=== PATIENT | male | born 1975 | race Caucasian/White ===

== ENCOUNTER 2020-06-15 13:04 | Emergency (ER) | payer OTHER, SELFPAY ==
--- NOTE | ~2020-06-15 | CT_ITS ---
EXAMINATION: CT ABDOMEN AND PELVIS WITH CONTRAST CLINICAL INFORMATION: 45-year-old male with right-sided abdominal pain. COMPARISON: Abdominal ultrasound 07/16/[address] abdomen pelvis 10/09/2016 TECHNIQUE: Multidetector volumetric images were obtained from the superior aspect of the liver through the pubic symphysis following administration 85 mL of Omnipaque 350 intravenous contrast. Sagittal and coronal reformatted images were obtained on the technologist's workstation. This CT examination was performed using dose optimization techniques as appropriate, variously including the following: *Automated exposure control *Adjustment of mA and/or kV according to patient size (this includes techniques or standardized protocols for targeted exams where dose is matched to indication/reason for exam; i.e. extremities or head) *Use of iterative reconstruction technique DLP: 692 mGy-cm FINDINGS: Visualized lung bases are well aerated. The liver demonstrates normal size, contour and attenuation. The gallbladder is normal in appearance. The pancreas, spleen and adrenal glands are unremarkable. Symmetrically enhancing kidneys. There is no hydronephrosis. There is a 6 mm nonobstructing calculus within the midpole the left kidney. This stone demonstrates attenuation values of approximately 850 and is located approximately 6.5 cm from the posterior skin surface. 4 mm hypodensity within the midpole the right kidney is too small to accurately characterize. Normal caliber loops of small and large bowel. Normal appendix. Nonaneurysmal abdominal aorta. The bladder is relatively decompressed but unremarkable. The prostate gland is prominent in size. No gross free pelvic fluid. No inguinal lymphadenopathy. Mild degenerative changes of the spine. CT/CT abdomen pelvis w con IMPRESSION: 6 mm nonobstructing left renal calculus. No right-sided renal calculi. No hydronephrosis of either kidney.
[2020-06-15 13:20] VITALS: BP 125/93; PULSE 66; RESP 17; TEMP 36.8; O2SAT 97; BMI 26.1
--- NOTE | 2020-06-15 15:34 | ED.ABDPAIN ---
HPI - Abdominal Pain General Chief Complaint: Abdominal Pain Stated Complaint: nose injury, abd pain Time Seen by Provider: 06/15/20 15:14 Source: patient Mode of arrival: ambulatory History of Present Illness HPI narrative: 45 y.o. M with no significant PMH presenting to the ED with multiple complaints. He endorses right sided abdominal pain x 2 days, constant, discomforting pain. No exacerbating factors such as eating, moving or breathing. He states several weeks ago he had sharp pains but they resolved spontaneously. He states the pain has now been constant but fluctuating in intensity, currently not as severe. His last BM was 5 hours ago. No prior abdominal surgeries. He also adds last night while playing basketball another player struck him in the nose with their elbow. he was having a nosebleed after, passed 3 clots. bleeding resolved today. he denies LOC during the incident. Today he has been having a headache and swelling underneath his right eye. Not on anticoagulation. Denies associated fevers, CP, SOB, vomiting, diarrhea, urinary changes. Related Data Allergies Allergy/AdvReac Type Severity Reaction Status Date / Time Triaminic Cold Allergy Unknown hives Verified 06/15/20 13:27 Review of Systems Constitutional: Denies fever(s) and Reports headache(s) Eyes: Reports no additional eye complaints Denies dizziness and Reports headache(s) Comments: nasal pain Cardiovascular: Denies chest pain and Denies dyspnea Respiratory: Denies cough and Denies dyspnea Gastrointestinal: Reports abdominal pain, Denies constipation, Denies diarrhea and Denies vomiting Comments: denies dysuria Musculoskeletal: Denies back pain Denies dizziness and Reports headache(s) Hematologic/Lymphatic: Denies easy bleeding Physical Exam Vital Signs: Vital Signs: Last Vital Signs Temp 98.9 F 06/15/20 15:57 Pulse 60 06/15/20 15:57 Resp 18 06/15/20 15:57 BP 115/72 06/15/20 15:57 Pulse Ox 98 06/15/20 15:57 Body Mass Index 26.1 Const: Other: pt. standing upright getting undressed General: cooperative Orientation/consciousness: patient oriented x3 HENMT: Other: nasal swelling and ecchymosis noted, no septal deviation, no current epistaxis, no septal hematoma no trismus, no tenderness to maxilla or mandible no periorbital edema, mild ecchymosis to inferior right orbit, no clarke's sign Head: Yes atraumatic Eyes: Pupils: Equal, round and reactive pupils present EOM: EOMs intact bilaterally Neck: Neck: Yes trachea midline and Yes supple Resp: Effort & Inspection: normal respiratory effort and able to speak in complete sentences Auscultation: clear to auscultation bilaterally Cardio: Rate: regular rate Rhythm: regular rhythm GI: Other: mild tenderness to right mid abdomen, no peritoneal signs, no guarding or rebound tenderness Back/Spine/Pelvis: Other: normal ROM Skin: Other: warm Neuro: General: patient oriented x3 and gait normal Cranial nerves: Yes Equal, round and reactive pupils present Extrem: General: Yes full ROM Course Course Course Narrative: Labs unremarkable. UA negative. CT shows stone in left kidney, however this would not be the explanation for his symptoms. Discussed results with pt. Will give ENT follow up regarding his nose. Return precautions discussed. He plans to follow up with his PCP. MDM - Abdominal Pain MDM Narrative Medical decision making narrative: 45-year-old male presenting to the emergency department with multiple complaints, concern for nasal pain and abdominal pain Vital stable, nontoxic appearing, hemodynamically stable Will plan for basic labs to assess for leukocytosis, anemia, renal dysfunction. Check LFTs for acute hepatobiliary disease. We will check lipase for acute pancreatitis. Will check UA for signs of infection, hematuria to suggest possible renal stone. Will obtain CT of the abdomen to rule out appendicitis given his right-sided pain. No peritoneal signs. Low concern for acute diverticulitis, no focal left lower quadrant tenderness. Acute cholecystitis is also on the differential given his right-sided pain, will evaluate LFTs. Doubt obstruction since he is having BM, no vomiting. In regards to his nose, no evidence of septal deviation. No airway compromise. Does have some mild swelling and ecchymosis or possible nasal contusion versus fracture, rule defer to ENT as an outpatient. Low concern for occular injury, EOMI. No trismus to suggest mandibular fx. No LOC, not on anticoagulation no vomiting to suggest underlying ICH. Lab Data Result diagrams: 06/15/20 15:52 06/15/20 15:52 Labs: Lab Results 06/15/20 06/15/20 06/15/20 Range/Units 15:52 15:52 15:52 WBC 9.6 (4.8-10.8) X10*3/uL RBC 5.29 (4.60-5.80) X10*6/uL Hgb 14.9 (14.0-18.0) g/dl Hct 45.2 (42-52) % MCV 85.4 (80-98) fL MCH 28.2 (27.0-33.0) pg MCHC 33.0 (31.0-36.0) g/dl RDW 13.1 (11.0-16.0) % Plt Count 292 (160-400) X10*3/uL MPV 9.7 (9.4-12.4) fL Immature Gran % (Auto) 0.3 (0.0-0.4) % Neut % (Auto) 68.8 (45-73) % Lymph % (Auto) 20.7 (20-40) % [place] % (Auto) 5.6 (2-11) % Eos % (Auto) 4.1 H (0-4) % Baso % (Auto) 0.5 (0-2) % Lymph # (Auto) 2.0 (1.2-4.9) X10*3/uL [place] # (Auto) 0.5 (0.1-1.2) X10*3/uL Eos # (Auto) 0.4 (0.0-0.4) X10*3/uL Baso # (Auto) 0.1 (0.0-0.2) X10*3/uL Abs Immat Gran (auto) 0.03 (0.00-0.03) X10*3/uL Absolute Neuts (auto) 6.6 (2.0-8.3) X10*3/uL Absolute Nucleated RBC 0.000 (0.0-0.012) X10*3/uL Nucleated RBC % (auto) 0.0 (0.0-0.2) /100WBC Sodium 139 (135-145) mmol/L Potassium 3.7 (3.3-5.1) mmol/L Chloride 103 (96-108) mmol/L Carbon Dioxide 29 (22-29) mmol/L Anion Gap 11 L (12-20) BUN 10 (9-16) mg/dL Creatinine 0.82 (0.5-1.4) mg/dL Estim Creat Clear Calc 123.7 Estimated GFR > 60 Random Glucose 92 (60-115) mg/dL Calcium 9.2 (8.4-10.2) mg/dL Total Bilirubin 0.6 (0.0-1.0) mg/dL Direct Bilirubin 0.2 (0.0-0.5) mg/dL AST 17 (5-37) U/L ALT 23 (0-40) U/L Alkaline Phosphatase 73 (39-117) U/L Total Protein 7.2 (6.5-8.0) g/dL Albumin 4.5 (3.5-5.0) g/dL Lipase 31 (8-78) U/L Urine Color YELLOW Urine Appearance CLEAR Urine pH 7.0 (5.0-8.0) Ur Specific [place] 1.020 (1.005-1.025) Urine Protein NEG (NEG-TRACE) MG/DL Urine Glucose (UA) NEG (NEG) MG/DL Urine Ketones NEG (NEG) MG/DL Urine Blood NEG (NEG) Urine Nitrite NEG (NEG) Ur Leukocyte Esterase NEG (NEG) Discharge Plan Discharge Clinical Impression: Contusion of nose, Abdominal pain Patient Disposition: Home, Self-Care Instructions: Abdominal Pain (ED), Nasal Contusion (ED) Additional Instructions: Please call the ENT office to schedule a follow up once your nasal swelling goes down if you have a nasal deformity and your nose appears to have a cosmetic defect. Please return to the emergency department for symptoms worsen, worsening pain, fevers, vomiting, black or bloody stools, will have a bowel movement, or other concerning symptoms.It is unclear what is causing your abdominal pain at this time, your CT showed you have a kdiney stone on the left side but this would not cause your pain on the right. You may take tylenol or motrin as directed for your pain if needed. Referrals: Fernando Cordero [Physician] - 1 week (nasal contusion vs. fracture ) [facility] Past Medical History [facility] Narrative: No PMH no prior abdominal surgeries Surgical History (Updated 06/15/20 @ 17:46 by ZELDA Velazquez) History of repair of ACL Social History Social History Alcohol intake: never Smoking Status: Never smoker Use of substances other than those prescribed or required for medical reasons: No Advance Directives: No Advance Directives Information Provided: No
[2020-06-15] MEDS: Ketorolac Tromethamine 30 MG/ML VIAL 15 MG IVPUSH (15:54)
[2020-06-15 15:57] VITALS: BP 115/72; PULSE 60; RESP 18; TEMP 37.2; O2SAT 98
[2020-06-15 16:09] LABS: MANUAL DIFF FLAG NO
[2020-06-15 16:10] LABS: Basophils Absolute Auto 0.1 X10*3/uL (0.0-0.2); Basophils Percent Auto 0.5 % (0-2); Eosinophils Absolute Auto 0.4 X10*3/uL (0.0-0.4); Eosinophils Percent Auto 4.1 % (0-4); Hematocrit 45.2 % (42-52); Hemoglobin 14.9 g/dl (14.0-18.0); Imm Gran Abs Auto 0.03 X10*3/uL (0.00-0.03); Imm Gran Pct Auto 0.3 % (0.0-0.4); Lymphocytes Percent Auto 20.7 % (20-40); Mean Corpuscular Hemoglobin 28.2 pg (27.0-33.0); Mean Corpuscular Volume 85.4 fL (80-98); Mean Platelet Volume 9.7 fL (9.4-12.4); Monocytes Absolute Auto 0.5 X10*3/uL (0.1-1.2); Monocytes Percent Auto 5.6 % (2-11); Neutrophils Absolute Auto 6.6 X10*3/uL (2.0-8.3); Neutrophils Percent Auto 68.8 % (45-73); Platelet Count 292 X10*3/uL (160-400); Red Blood Count 5.29 X10*6/uL (4.60-5.80); Red Cell Distribution Width 13.1 % (11.0-16.0); White Blood Count 9.6 X10*3/uL (4.8-10.8)
[2020-06-15 16:11] LABS: Appearance Urine CLEAR; Color Urine YELLOW; Glucose Urine UA NEG (NEG); Leukocyte Esterase Urine NEG (NEG); Nitrite Urine NEG (NEG); Urine Blood NEG (NEG); Urine Ketones NEG (NEG); Urine Protein NEG (NEG-TRACE)
[2020-06-15 16:47] LABS: Alanine Aminotransferase 23 U/L (0-40); Albumin Level 4.5 g/dL (3.5-5.0); Alkaline Phosphatase 73 U/L (39-117); Anion Gap 11 (12-20); Aspartate Amino Transferase 17 U/L (5-37); Bilirubin Direct 0.2 mg/dL (0.0-0.5); Bilirubin Total 0.6 mg/dL (0.0-1.0); Blood Urea Nitrogen 10 mg/dL (9-16); Calcium 9.2 mg/dL (8.4-10.2); Carbon Dioxide 29 mmol/L (22-29); Chloride 103 mmol/L (96-108); Creatinine Clr Calc Pharmacy 123.7; Estimated Glomerular Filt Rate > 60; Glucose Random 92 mg/dL (60-115); Lipase 31 U/L (8-78); Potassium 3.7 mmol/L (3.3-5.1); Sodium 139 mmol/L (135-145); Total Protein 7.2 g/dL (6.5-8.0)
[2020-06-15] MEDS: iohexoL 350 MG/ML 100 ML INFUS..BTL IV (17:09)
== END 2020-06-15 18:16 | disposition home or self-care (01) ==
PROVIDERS: Physician Assistant Medical; Emergency Provider Emergency Medicine Emergency Medical Services
DX: S00.33XA Contusion of nose, initial encounter (principal); J34.89 Other specified disorders of nose and nasal sinuses; R10.9 Unspecified abdominal pain; Y29.XXXA Contact with blunt object, undetermined intent, initial encounter; Y93.67 Activity, basketball; Y92.310 Basketball court as the place of occurrence of the external cause; Y99.9 Unspecified external cause status
CPT/HCPCS: 36415; 74177; 80048; 80076; 81003; 83690; 85025; 96365; 96375; 99284; J1885; Q9967

== ENCOUNTER 2020-10-06 09:55 | Emergency (ER) | payer OTHER, SELFPAY ==
--- NOTE | ~2020-10-06 | XR_ITS ---
EXAMINATION: XR LUMBOSACRAL SPINE CLINICAL INFORMATION: Back pain, spasm COMPARISON: CT abdomen and pelvis with contrast 06/15/2020 TECHNIQUE: Three views of the lumbosacral spine. FINDINGS: There is normal lumbar segmentation with 5 nonrib-bearing lumbar vertebrae of normal height and normal lumbar lordosis. There is no lumbar vertebral reaction, spondylolisthesis, or destructive process. There are degenerative disc changes at L2-L3 with disc narrowing and vertebral spurring. Lesser degenerative disc changes present at L1-L2. There are also degenerative changes in the lower thoracic spine. The SI joints and visualized sacrum are unremarkable. There is a 0.7 cm left renal calculus, nonobstructing on prior CT 06/15/2020. XR/XR lumbar spine 2-3V IMPRESSION: 1. Degenerative disc changes lower thoracic and upper lumbar spine. 2. No vertebral compression, spondylolisthesis, or destructive process. 3. Left renal calculus, 0.7 cm.
[2020-10-06 10:16] VITALS: BP 117/81; PULSE 64; RESP 17; TEMP 36.8; O2SAT 95; BMI 26.0
[2020-10-06] MEDS: Ketorolac Tromethamine 30 MG/ML VIAL IM (10:33)
[2020-10-06] MEDS: Lidocaine 4 % Patch ADH..PATCH 1 PATCH TRANSDERMA (10:33)
[2020-10-06] MEDS: oxyCODONE HCl Immed Release 5 MG TABLET PO (10:34)
[2020-10-06] MEDS: Cyclobenzaprine HCl 5 MG TABLET PO (10:34)
[2020-10-06 11:11] VITALS: RESP 17
[2020-10-06 11:12] VITALS: RESP 17
--- NOTE | 2020-10-06 11:28 | ED_ITS ---
HPI - Back Pain/Injury General Chief Complaint: Back Pain/Injury Stated Complaint: back pain Time Seen by Provider: 10/06/20 10:25 Source: patient Mode of arrival: ambulatory History of Present Illness HPI Narrative: 45-year-old male with no significant past medical history presenting to the ED complaining of sudden onset low back pain after stepping wrong on last stair yesterday and hearing a pop in his lower back. Reports has needed to walk with assistance since. Denies direct injury/trauma or fall. Admits to pain radiating down bilateral lower extremities with associated numbness/tingling. Denies urinary incontinence or retention. Denies fever, chills MD elicited complaint: back injury Related Data Previous Rx's Medication Instructions Recorded acetaminophen [Tylenol Extra 500 mg PO Q6H PRN #20 tab 10/06/20 Strength] cyclobenzaprine 5 mg PO Q8H PRN 5 Days #14 tab 10/06/20 lidocaine [Lidoderm] 1 patch TOPICAL DAILY PRN #30 ea 10/06/20 MDD remove after 12 hours naproxen 500 mg PO BID PRN 10 Days #20 tab 10/06/20 Allergies Allergy/AdvReac Type Severity Reaction Status Date / Time Triaminic Cold Allergy Unknown hives Verified 06/15/20 13:27 Review of Systems Review of Systems: Constitutional: No Fever, No Chills Cardiovascular: No Chest Pain, No SOB Respiratory: No Cough, No Sputum, No Wheezing Gastrointestinal: No Nausea, No Vomiting, No Abdominal pain Genitourinary: No Dysuria, No Urinary Frequency, No Hematuria, No Urinary Incontinence/retention, No Flank Pain Musculoskeletal: + joint pain, No Myalgias, No Joint Swelling Skin: No Skin Lesions, No rash Neuro: No Weakness, + Numbness, + Paresthesias Yes all other systems are reviewed and are negative Neurologic: Denies Sensory deficit (Neuro) [facility] Past Medical History Attestation statement: The following information was validated with the patient. Surgical History History of repair of ACL Social History Social History Alcohol intake: never Advance Directives: Yes Advance Directives Information Provided: No Advance Directives on File: No Physical Exam Vital Signs: Vital Signs: Last Vital Signs Temp 98.3 F 10/06/20 10:16 Pulse 64 10/06/20 10:16 Resp 17 10/06/20 11:12 BP 117/81 10/06/20 10:16 Pulse Ox 95 10/06/20 10:16 Body Mass Index 26.0 Const: General: cooperative and healthy appearing Orientation/consciousness: patient oriented x3 Limitations: no limitations HENMT: Head: Yes normal to inspection Ears: hearing grossly normal bilat erally General nose exam: Normal external nose present Face and sinus: Yes normal facial exam Eyes: General: appearance normal, both eyes and all related structures EOM: EOMs intact bilaterally Neck: Neck: Yes normal visual inspection Resp: Effort & Inspection: normal respiratory effort and no respiratory di stress Cardio: Rate: regular rate Peripheral pulses: dorsalis pedis present Back/Spine/Pelvis: Other: + lumbar swelling/muscle spasming visible. + bilateral paraspinal tenderness, no midline spinous tenderness or appreciable deformity/step-off. + bilateral MSK buttock tenderness to palpation greater on the right. Skin: Rashes: no rashes Wounds: no wounds Neuro: Other: No saddle anesthesia. Ambulating with limping gait secondary to pain General: patient oriented x3, tone normal and moves all extremities Gait exam (Neuro): Normal gait present Motor exam (neuro): 5/5 motor strength present throughout Sensory Exam: No Sensory deficit (Neuro) Extrem: General: Yes normal to inspection MDM - Back Pain/Injury MDM Narrative Medical decision making narrative: 45-year-old male with no significant past medical history presenting to the ED complaining of sudden onset low back pain after stepping wrong on last stair yesterday and hearing a pop in his lower back. On exam VSS, NAD, appears in pain, physical exam as above. No red flag symptoms, no midline spinous tenderness, is ambulatory. Concern for MSK pain/strain and muscle spasming. Low concern for cauda equina/cord compression or fracture/dislocation. Plan: Lumbar x-rays, pain control, reassess, anticipate DC home with PCP follow-up Discharge Plan Discharge Clinical Impression: Strain of lumbar region, Lumbar radiculopathy Patient Disposition: Home, Self-Care Instructions: Acute Low Back Pain (ED) Additional Instructions: Your pain is likely musculoskeletal Flexeril is a muscle relaxer, take at night as it makes you drowsy, do not drive, drink alcohol, or operate machinery while taking it Naproxen as an anti-inflammatory / pain medication, take with food Lidoderm patches are numbing patches, apply to painful area In addition take Tylenol at home If symptoms persist or worsen, pain becomes unbearable, you developed urinary retention or incontinence, or weakness return to the ED Prescriptions: New acetaminophen [Tylenol Extra Strength] 500 mg tablet 500 mg PO Q6H PRN (Reason: pain or fever) Qty: 20 RF: 0 lidocaine [Lidoderm] 5 % adhesive patch,medicated 1 patch topical DAILY MDD remove after 12 hours PRN (Reason: pain) Qty: 30 RF: 0 naproxen 500 mg tablet 500 mg PO BID PRN (Reason: pain) 10 Days Qty: 20 RF: 0 cyclobenzaprine 5 mg tablet 5 mg PO Q8H PRN (Reason: pain (scale score 7-10)) 5 Days Qty: 14 RF: 0 Referrals: Aguila Leary MD [Primary Care Provider] - 2 days
== END 2020-10-06 11:45 | disposition home or self-care (01) ==
PROVIDERS: Emergency Provider Emergency Medicine; PCP Internal Medicine Sports Medicine
DX: S39.012A Strain of muscle, fascia and tendon of lower back, initial encounter (principal); M54.16 Radiculopathy, lumbar region; X58.XXXA Exposure to other specified factors, initial encounter; Y93.9 Activity, unspecified; Y92.9 Unspecified place or not applicable; Y99.9 Unspecified external cause status
CPT/HCPCS: 72100; 96372; 99283; 99284; J1885

== ENCOUNTER 2020-10-28 06:01 | Emergency (ER) | payer OTHER, SELFPAY ==
--- NOTE | ~2020-10-28 | US_ITS ---
EXAMINATION: US SCROTUM CLINICAL INFORMATION: Pain. COMPARISON: None TECHNIQUE: A sonogram of the scrotum was performed assessing rose-scale appearance and color Doppler flow. Spectral Doppler analysis of the arterial and venous flow were performed in the testes bilaterally. FINDINGS: RIGHT: Right testicle measures 4.7 x 3.1 x 2.6 cm, volume 20 mL. There is a small 2 mm calcification. No focal testicular parenchymal lesions are visualized. Spectral Doppler analysis of the arterial and venous flow is normal in the right testis. There is a 1.6 x 1.6 x 1.8 cm epididymal head cyst. No right hydrocele or varicocele is seen. Right epididymal Doppler flow is normal. LEFT: Left testicle measures 4.4 x 2.5 x 3 cm, volume 17 mL. There are 2 small 1 to 2 mm calcifications. No focal testicular parenchymal lesions are visualized. Spectral Doppler analysis of the arterial and venous flow is normal in the left testis. Left epididymal head is normal in size. No left hydrocele or varicocele is seen. Left epididymal Doppler flow is normal. US/US scrotum doppler IMPRESSION: 1.6 x 1.6 x 1.8 cm right epididymal head cyst. Small bilateral testicular calcifications, one on the right and 2 on the left. This does not meet ultrasound criteria for microlithiasis.
--- NOTE | ~2020-10-28 | US_ITS ---
EXAMINATION: US SCROTUM CLINICAL INFORMATION: Pain. COMPARISON: None TECHNIQUE: A sonogram of the scrotum was performed assessing rose-scale appearance and color Doppler flow. Spectral Doppler analysis of the arterial and venous flow were performed in the testes bilaterally. FINDINGS: RIGHT: Right testicle measures 4.7 x 3.1 x 2.6 cm, volume 20 mL. There is a small 2 mm calcification. No focal testicular parenchymal lesions are visualized. Spectral Doppler analysis of the arterial and venous flow is normal in the right testis. There is a 1.6 x 1.6 x 1.8 cm epididymal head cyst. No right hydrocele or varicocele is seen. Right epididymal Doppler flow is normal. LEFT: Left testicle measures 4.4 x 2.5 x 3 cm, volume 17 mL. There are 2 small 1 to 2 mm calcifications. No focal testicular parenchymal lesions are visualized. Spectral Doppler analysis of the arterial and venous flow is normal in the left testis. Left epididymal head is normal in size. No left hydrocele or varicocele is seen. Left epididymal Doppler flow is normal. US/US scrotum IMPRESSION: 1.6 x 1.6 x 1.8 cm right epididymal head cyst. Small bilateral testicular calcifications, one on the right and 2 on the left. This does not meet ultrasound criteria for microlithiasis.
[2020-10-28 06:04] VITALS: BP 124/91; PULSE 73; RESP 16; TEMP 36.6; O2SAT 97; BMI 25.7
--- NOTE | 2020-10-28 07:35 | ED_ITS ---
HPI - Back Pain/Injury General Chief Complaint: Back Pain/Injury Stated Complaint: lower back pain, nausea, urogenital Time Seen by Provider: 10/28/20 07:19 Source: patient Mode of arrival: ambulatory Limitations: no limitations History of Present Illness HPI Narrative: 45-year-old male with chronic back pain on disability for several years presents emergency department complaining of testicular pain. Patient mario s have back pain as well but states that is chronic he has MRI scheduled for this week. Patient had 1 scheduled for 2 days ago and he cannot tolerate being in the MRI scanner. Patient states that he misstepped 2 weeks ago and has had pain since then he has been on prednisone Flexeril and ibuprofen. He took himself off the medications and he has been getting around and ambulating without any difficulties also been using lidocaine patches but has been hot and he states has been sticking as well. Patient denies fevers chills cough or shortness of breath. Patient has no back pain red flags no numbness or tingling no loss of bowel or bladder function set weight loss he has less than 50 years old no night sweats. Patient last night felt something that felt a bit abnormal and his testes and then was up all night concerned is testicles. Related Data Previous Rx's Medication Instructions Recorded acetaminophen [Tylenol Extra 500 mg PO Q6H PRN #20 tab 10/06/20 Strength] cyclobenzaprine 5 mg PO Q8H PRN 5 Days #14 tab 10/06/20 lidocaine [Lidoderm] 1 patch TOPICAL DAILY PRN #30 ea 10/06/20 MDD remove after 12 hours naproxen 500 mg PO BID PRN 10 Days #20 tab 10/06/20 Allergies Allergy/AdvReac Type Severity Reaction Status Date / Time Triaminic Cold Allergy Unknown hives Verified 10/28/20 06:04 Review of Systems Review of Systems: Review of systems: General: Patient denies any fever chills recent illness or falls Musculoskeletal: Denies back pain or body aches or other injuries HEENT: denies headache, runny nose, ear pain Respiratory: denies shortness of breath, cough Cardiovascular: no chest pain or palpitations : right testicle pain denies dysuria, frequency Abdomen: no nausea vomiting denies abdominal pain Extremities: no swelling, no pain Skin: no diaphoresis Yes unobtainable due to endotracheal tube, Unobtainable due to mental condition, Unobtainable due to mental status and Other PMFSH Past Medical History Attestation statement: The following information was validated with the patient. Surgical History History of repair of ACL Social History Social History Alcohol intake: current Alcohol intake frequency: holidays/special occasions only Patient Tobacco Use Status: Never used Tobacco Use of substances other than those prescribed or required for medical reasons: No Advance Directives: Yes Advance Directives Information Provided: Yes Advance Directives on File: No Physical Exam Vital Signs: Vital Signs: Last Vital Signs Temp 98.0 F 10/28/20 08:02 Pulse 64 10/28/20 08:02 Resp 16 10/28/20 08:02 BP 113/70 10/28/20 08:02 Pulse Ox 99 10/28/20 08:02 Body Mass Index 25.7 General: Well-appearing well-nourished in no signs of distress HEENT: Normocephalic atraumatic Neck: No signs of JVD, no masses no tenderness or lymphadenopathy Cardiovascular: Regular rate and rhythm Respiratory: Clear to auscultation bilaterally Abdomen: Soft nontender no masses r No tenderness or masses palpated of the testicles. Patient points to the scrotum wanting I think along his epididymis. Extremities: Normal pedal pulses no signs of edema Skin: Dry warm no rashes Back: No tenderness full ROM Course Course Course Narrative: [address] [id number] ReportSigned Patient: Ivan Li [facility]#: [id number]: 1975Acct:[id number]/Sex: 45 / MADM Date: 10/28/20Loc: Hi Dr: Ordering Physician: Homero Eckert DO Date of Service: 10/28/20 Procedure(s): US scrotum doppler Accession Number(s): [id number] cc: Homero Eckert DO~ EXAMINATION: US SCROTUM CLINICAL INFORMATION: Pain. COMPARISON: None TECHNIQUE: A sonogram of the scrotum was performed assessing rose-scale appearance and color Doppler flow. Spectral Doppler analysis of the arterial and venous flow were performed in the testes bilaterally. FINDINGS: RIGHT: Right testicle measures 4.7 x 3.1 x 2.6 cm, volume 20 mL. There is a small 2 mm calcification. No focal testicular parenchymal lesions are visualized. Spectral Doppler analysis of the arterial and venous flow is normal in the right testis. There is a 1.6 x 1.6 x 1.8 cm epididymal head cyst. No right hydrocele or varicocele is seen. Right epididymal Doppler flow is normal. LEFT: Left testicle measures 4.4 x 2.5 x 3 cm, volume 17 mL. There are 2 small 1 to 2 mm calcifications. No focal testicular parenchymal lesions are visualized. Spectral Doppler analysis of the arterial and venous flow is normal in the left testis. Left epididymal head is normal in size. No left hydrocele or varicocele is seen. Left epididymal Doppler flow is normal. US/US scrotum doppler IMPRESSION: 1.6 x 1.6 x 1.8 cm right epididymal head cyst. Small bilateral testicular calcifications, one on the right and 2 on the left. This does not meet ultrasound criteria for microlithiasis. Dictated By:BRANDY MONTANOigned By:<Electronically signed by BRANDY MONTANO MD in OV>10/28/20 0814 DD/ [id number]/TT: Crime Scene Technician: URMILA Reevaluation(s) Reevaluation #1: Patient explained US results asking for fluids and antiemetics upon arrival back to room stating he has been vomiting. Patient re-evaluated stating that he is having pain in his right flank radiating towards her growing. I did order CT scan check labs labs are unremarkable patient went over for CT scan patient could not tolerate it. After given Benadryl so they could tolerate the procedure patient states he cannot he did have a CT scan recently that showed a stone within the kidney itself does not look like kidney stone patient is not have any changes in his vital signs patient looks otherwise well I feel comfortable sending patient home. Patient again refused to have any further testing done and is getting ready to go home. MDM - Back Pain/Injury MDM Narrative Medical decision making narrative: I spent a long time to time the patient has back pain there is nothing to do for his back pain today and he is in agreement I tried to explain to him was the correct medications and that those will likely be helpful. I tried to relate TMs explaining the back pain does happen to 90% of people and does usually resolved. At this time he was able to be more truthful with me stating these are chronic back pain he has had MRIs in the past has not required surgery he has had sciatica multiple times the past and this back pain actually has improved over the last several weeks and is now ambula tory and was has full range of motion. Having said I will give the patient her for a testicular ultrasound workup his testicular pain will check a urinalysis and send off GC chlamydia. He is adamant that he is 1 sexual partner. Lab Data Result diagrams: 10/28/20 10:34 10/28/20 10:34 Labs: Lab Results 10/28/20 10/28/20 10/28/20 Range/Units 08:47 08:47 10:34 WBC 10.0 (4.8-10.8) X10*3/uL RBC 5.46 (4.60-5.80) X10*6/uL Hgb 15.4 (14.0-18.0) g/dl Hct 46.2 (42-52) % MCV 84.6 (80-98) fL MCH 28.2 (27.0-33.0) pg MCHC 33.3 (31.0-36.0) g/dl RDW 13.1 (11.0-16.0) % Plt Count 271 (160-400) X10*3/uL MPV 9.4 (9.4-12.4) fL Immature Gran % (Auto) 0.4 (0.0-0.4) % Neut % (Auto) 78.4 H (45-73) % Lymph % (Auto) 15.1 L (20-40) % Ada % (Auto) 4.8 (2-11) % Eos % (Auto) 0.9 (0-4) % Baso % (Auto) 0.4 (0-2) % Lymph # (Auto) 1.5 (1.2-4.9) X10*3/uL Ada # (Auto) 0.5 (0.1-1.2) X10*3/uL Eos # (Auto) 0.1 (0.0-0.4) X10*3/uL Baso # (Auto) 0.0 (0.0-0.2) X10*3/uL Abs Immat Gran (auto) 0.04 H (0.00-0.03) X10*3/uL Absolute Neuts (auto) 7.8 (2.0-8.3) X10*3/uL Absolute Nucleated RBC 0.000 (0.0-0.012) X10*3/uL Nucleated RBC % (auto) 0.0 (0.0-0.2) /100WBC Sodium (135-145) mmol/L Potassium (3.3-5.1) mmol/L Chloride (96-108) mmol/L Carbon Dioxide (22-29) mmol/L Anion Gap (12-20) BUN (9-16) mg/dL Creatinine (0.5-1.4) mg/dL Estim Creat Clear Calc Estimated GFR Random Glucose (60-115) mg/dL Calcium (8.4-10.2) mg/dL Urine Color STRAW Urine Appearance CLEAR Urine pH 6.0 (5.0-8.0) Ur Specific [place] <= 1.005 (1.005-1.025) Urine Protein NEG (NEG-TRACE) MG/DL Urine Glucose (UA) NEG (NEG) MG/DL Urine Ketones NEG (NEG) MG/DL Urine Blood NEG (NEG) Urine Nitrite NEG (NEG) Ur Leukocyte Esterase NEG (NEG) COVID-19 (CRISTEL) Negative (Negative) COVID-19 Clin Com See Note 10/28/20 Range/Units 10:34 WBC (4.8-10.8) X10*3/uL RBC (4.60-5.80) X10*6/uL Hgb (14.0-18.0) g/dl Hct (42-52) % MCV (80-98) fL MCH (27.0-33.0) pg MCHC (31.0-36.0) g/dl RDW (11.0-16.0) % Plt Count (160-400) X10*3/uL MPV (9.4-12.4) fL Immature Gran % (Auto) (0.0-0.4) % Neut % (Auto) (45-73) % Lymph % (Auto) (20-40) % Ada % (Auto) (2-11) % Eos % (Auto) (0-4) % Baso % (Auto) (0-2) % Lymph # (Auto) (1.2-4.9) X10*3/uL Ada # (Auto) (0.1-1.2) X10*3/uL Eos # (Auto) (0.0-0.4) X10*3/uL Baso # (Auto) (0.0-0.2) X10*3/uL Abs Immat Gran (auto) (0.00-0.03) X10*3/uL Absolute Neuts (auto) (2.0-8.3) X10*3/uL Absolute Nucleated RBC (0.0-0.012) X10*3/uL Nucleated RBC % (auto) (0.0-0.2) /100WBC Sodium 137 (135-145) mmol/L Potassium 4.7 D (3.3-5.1) mmol/L Chloride 106 (96-108) mmol/L Carbon Dioxide 23 (22-29) mmol/L Anion Gap 13 (12-20) BUN 14 (9-16) mg/dL Creatinine 0.82 (0.5-1.4) mg/dL Estim Creat Clear Calc 123.7 Estimated GFR > 60 Random Glucose 100 (60-115) mg/dL Calcium 9.5 (8.4-10.2) mg/dL Urine Color Urine Appearance Urine pH (5.0-8.0) Ur Specific [place] (1.005-1.025) Urine Protein (NEG-TRACE) MG/DL Urine Glucose (UA) (NEG) MG/DL Urine Ketones (NEG) MG/DL Urine Blood (NEG) Urine Nitrite (NEG) Ur Leukocyte Esterase (NEG) COVID-19 (CRISTEL) (Negative) COVID-19 Clin Com Discharge Plan Discharge Clinical Impression: Lumbar radiculopathy, Chronic pain in testicle, Epididymal cyst Patient Disposition: Home, Self-Care Instructions: Scrotal Pain (ED), Lower Back Exercises (ED), Lumbar Radiculopat hy (ED) Additional Instructions: Please call follow up with her doctor has we discussed back pain unfortunately is very common occurrence he did have an MRI scheduled please do not miss that appointment I think you will benefit from taking the prednisone Flexeril and ibuprofen as prescribed to you if you have any further concerns please do not hesitate to come back to emergency department. Prescriptions: No Action acetaminophen [Tylenol Extra Strength] 500 mg tablet 500 mg PO Q6H PRN (Reason: pain or fever) Qty: 20 RF: 0 lidocaine [Lidoderm] 5 % adhesive patch,medicated 1 patch topical DAILY MDD remove after 12 hours PRN (Reason: pain) Qty: 30 RF: 0 naproxen 500 mg tablet 500 mg PO BID PRN (Reason: pain) 10 Days Qty: 20 RF: 0 cyclobenzaprine 5 mg tablet 5 mg PO Q8H PRN (Reason: pain (scale score 7-10)) 5 Days Qty: 14 RF: 0
[2020-10-28 08:02] VITALS: BP 113/70; PULSE 64; RESP 16; TEMP 36.7; O2SAT 99
[2020-10-28] MEDS: 0.9 % Sodium Chloride 500 ML 999 ML IV (08:33)
[2020-10-28] MEDS: ondansetron HCL 4 MG/2 ML VIAL IVPUSH (08:36)
[2020-10-28 08:59] LABS: Glucose Urine UA NEG (NEG); Leukocyte Esterase Urine NEG (NEG); Nitrite Urine NEG (NEG); Specific Gravity - Urine <= 1.005 (1.005-1.025); Urine Blood NEG (NEG); Urine Ketones NEG (NEG); Urine Protein NEG (NEG-TRACE)
[2020-10-28 09:00] LABS: Appearance Urine CLEAR; Color Urine STRAW
[2020-10-28 09:11] LABS: COVID-19 Test Negative (Negative)
[2020-10-28] MEDS: diphenhydrAMINE HCL 50 MG/ML VIAL 25 MG IVPUSH (10:37)
[2020-10-28] MEDS: Ketorolac Tromethamine 15 MG/ML VIAL IV (10:37)
[2020-10-28 10:40] LABS: MANUAL DIFF FLAG NO
[2020-10-28 10:42] LABS: Basophils Percent Auto 0.4 % (0-2); Eosinophils Absolute Auto 0.1 X10*3/uL (0.0-0.4); Eosinophils Percent Auto 0.9 % (0-4); Hematocrit 46.2 % (42-52); Hemoglobin 15.4 g/dl (14.0-18.0); Imm Gran Abs Auto 0.04 X10*3/uL (0.00-0.03); Imm Gran Pct Auto 0.4 % (0.0-0.4); Lymphocytes Absolute Auto 1.5 X10*3/uL (1.2-4.9); Lymphocytes Percent Auto 15.1 % (20-40); Mean Corpuscular HGB Conc 33.3 g/dl (31.0-36.0); Mean Corpuscular Hemoglobin 28.2 pg (27.0-33.0); Mean Corpuscular Volume 84.6 fL (80-98); Mean Platelet Volume 9.4 fL (9.4-12.4); Monocytes Absolute Auto 0.5 X10*3/uL (0.1-1.2); Monocytes Percent Auto 4.8 % (2-11); Neutrophils Absolute Auto 7.8 X10*3/uL (2.0-8.3); Neutrophils Percent Auto 78.4 % (45-73); Platelet Count 271 X10*3/uL (160-400); Red Blood Count 5.46 X10*6/uL (4.60-5.80); Red Cell Distribution Width 13.1 % (11.0-16.0)
[2020-10-28 11:15] LABS: Anion Gap 13 (12-20); Blood Urea Nitrogen 14 mg/dL (9-16); Calcium 9.5 mg/dL (8.4-10.2); Carbon Dioxide 23 mmol/L (22-29); Chloride 106 mmol/L (96-108); Creatinine Clr Calc Pharmacy 123.7; Estimated Glomerular Filt Rate > 60; Glucose Random 100 mg/dL (60-115); Potassium 4.7 mmol/L (3.3-5.1); Sodium 137 mmol/L (135-145)
[2020-10-28 11:45] VITALS: BP 127/89; PULSE 70; RESP 16; O2SAT 98
--- NOTE | 2020-10-28 11:58 | PC.NURSE ---
pt has been very anxious, restless. He is slightly diaphoretic. He states he became anxious in CT scan and now wants to leave. HE has been seen by provider and made ready for discharge. Pt ambulatory with steady gait. HE states his abdominal and groin pain is slightly better but back pain is as before 01/25. He is ready for discharge and states understanding of follow up plan.
[2020-10-28 13:31] LABS: CT PCR NOT DETECTED (Not Detect.); NG PCR NOT DETECTED (Not Detect.)
== END 2020-10-28 12:00 | disposition home or self-care (01) ==
PROVIDERS: Emergency Provider Student in an Organized Health Care Education/Training Program
DX: M54.16 Radiculopathy, lumbar region (principal); N50.812 Left testicular pain; N50.811 Right testicular pain; N50.3 Cyst of epididymis; Z20.822 Contact with and (suspected) exposure to COVID-19
CPT/HCPCS: 36415; 76870; 80048; 81003; 85025; 87491; 87591; 87635; 93975; 96361; 96374; 96375; 96376; 99284; J1200; J1790; J1885; J2405

== ENCOUNTER 2021-05-04 12:59 | Emergency (ER) | payer OTHER, SELFPAY ==
--- NOTE | ~2021-05-04 | US_ITS ---
EXAMINATION: US VENOUS ULTRASOUND WITH DOPPLER LOWER EXTREMITY, LEFT CLINICAL INFORMATION: Shortness of breath and left lower extremity pain. COMPARISON: Left lower extremity DVT ultrasound dated from 10/30/2009. TECHNIQUE: Ultrasound of the deep veins is performed from the hip to the calf with compression sonography and color and pulse Doppler assessment. Spectral analysis with color-flow imaging is performed. FINDINGS: There is normal venous compression and respiratory variation and augmented flow. The visualized common femoral vein, superficial femoral vein, profunda femoral vein, popliteal vein, and the trifurcation region shows no evidence of deep venous thrombosis. There is no significant popliteal fossa cyst. If the patient's symptoms persist, followup ultrasound in 5 days 7 days might be of value to exclude proximal propagation from a non-visualized calf vein. US/US venous duplex LE IMPRESSION: No DVT demonstrated in the left lower extremity.
--- NOTE | ~2021-05-04 | XR_ITS ---
EXAMINATION: XR CHEST CLINICAL INFORMATION: Shortness of breath COMPARISON: 07/16/2019 TECHNIQUE: Frontal view of the chest was obtained. FINDINGS: No significant abnormality is noted involving the heart, lungs, mediastinum, bony thorax or soft tissues. XR/XR chest 1V IMPRESSION: Unremarkable examination.
[2021-05-04 13:25] VITALS: BP 125/81; PULSE 69; RESP 16; TEMP 36.7; O2SAT 97; BMI 27.3
--- NOTE | 2021-05-04 14:43 | ECG_ITS ---
Test Reason : LEFT LEG PAIN Blood Pressure : / mmHG Vent. Rate : 061 BPM Atrial Rate : 061 BPM P-R Int : 146 ms QRS Dur : 092 ms QT Int : 398 ms P-R-T Axes : 048 048 010 degrees QTc Int : 400 ms Normal sinus rhythm Normal ECG When compared with ECG of 14-FEB-2015 18:57, No significant change was found Referred By: Mer Bennett Electronically Signed By:Robert Cabello
--- NOTE | 2021-05-04 14:57 | ED_ITS ---
HPI - Extremity Problem General Chief complaint: Extremity Problem Stated complaint: L leg pain dif breathing chest pain Time Seen by Provider: 05/04/21 14:22 Source: patient Mode of arrival: ambulatory History of Present Illness HPI Narrative: 46 yo M with no significant past medical history presenting to the ED complaining of left calf pain and mild SOB x a couple days. denies fever, chills, cough, CP, recent travel, history of clotting cigarette smoking MD Complaint: extremity pain Onset (ago): day(s) Pain Consistency: constant Related Data Previous Rx's Medication Instructions Recorded acetaminophen 500 mg tablet 500 mg PO Q6H PRN #20 tab 10/06/20 (Tylenol Extra Strength) cyclobenzaprine 5 mg tablet 5 mg PO Q8H PRN 5 Days #14 tab 10/06/20 lidocaine 5 % topical patch 1 patch TOPICAL DAILY PRN #30 ea 10/06/20 (Lidoderm) MDD remove after 12 hours naproxen 500 mg tablet 500 mg PO BID PRN 10 Days #20 tab 10/06/20 Allergies Allergy/AdvReac Type Severity Reaction Status Date / Time Triaminic Cold Allergy Unknown hives Verified 10/28/20 06:04 Review of Systems Review of Systems: Constitutional: No Fever, No Chills ENT/Mouth: No Ear Pain, No Nasal Congestion, No Hoarseness, No sore throat, No Rhinorrhea Cardiovascular: No Chest Pain, + SOB Respiratory: No Cough, No Sputum Gastrointestinal: No Nausea, No Vomiting, No Diarrhea, No Constipation, No Abdominal pain Genitourinary: No Dysuria, No Urgency, No Flank Pain Musculoskeletal: + joint pain, No Myalgias, No Joint Swelling Skin: No Skin Lesions, No rash Neuro: No Weakness, No Numbness, No Paresthesias Yes all other systems are reviewed and are negative [facility] Past Medical History Attestation statement: The following information was validated with the patient. Surgical History History of repair of ACL Social History Social History Alcohol intake: current Alcohol intake frequency: holidays/special occasions only Patient Tobacco Use Status: Never used Tobacco Advance Directives: No Advance Directives Information Provided: No Physical Exam Vital Signs: Vital Signs: Last Vital Signs Temp 98.1 F 05/04/21 13:25 Pulse 69 05/04/21 13:25 Resp 16 05/04/21 13:25 BP 125/81 05/04/21 13:25 Pulse Ox 97 05/04/21 13:25 BMI result Body Mass Index 27.3 Const: General: cooperative, healthy appearing and no acute distress Orientation/consciousness: patient oriented x3 Limitations: no limitations HENMT: Head: Yes normal to inspection Ears: hearing grossly normal bilaterally General nose exam: Normal external nose present Face and sinus: Yes normal facial exam Eyes: General: appearance normal, both eyes and all related structures EOM: EOMs intact bilaterally Neck: Neck: Yes normal visual inspection and Yes no meningeal signs Resp: Effort & Inspection: normal respiratory effort and no respiratory distress Auscultation: clear to auscultation bilaterally, no rales, no rhonchi and no wheezes Cardio: Rate: regular rate Heart sounds: S1 normal heart sound present and S2 normal heart sound present GI: Inspection: Yes normal to inspection Skin: Rashes: no rashes Wounds: no wounds Neuro: General: patient oriented x3 and no meningeal signs Gait exam (Neuro): Normal gait present Extrem: Other: +left calf pain, no erythema or swelling General: Yes normal to inspection and Yes no pedal edema Course Course Course Narrative: -1640--US venous duplex LE LT IMPRESSION: No DVT demonstrated in the left lower extremity. -1720-- no leukocytosis. H&H stable. D-dimer negative. Troponin negative, labs otherwise unremarkable -COVID-19 negative 1755--XR chest 1V IMPRESSION: Unremarkable examination. >> results discussed with patient including worrisome signs and symptoms and strict return precautions and needed close follow-up with PCP. MDM - Extremity (Nontraumatic) MDM Narrative Medical decision making narrative: 46 yo M with no significant past medical history presenting to the ED complaining of left calf pain and mild SOB x a couple days. on exam vital signs stable, NAD/ nontoxic appearing, lungs CTA, no pedal edema, left calf tenderness noted on exam. No erythema/ streaking. Concern for DVT vs PE. concern for viral syndrome/ COVID-19. Lower concern for pneumonia or ACS Plan: EKG, labs, COVID-19 testing, venous duplex ultrasound Differential Diagnosis Differential diagnosis: Likely lower extremity edema and deep vein thrombosis of lower extremity Medical Records Attestation: I reviewed the patient's medical records. Lab Data Attestation: I reviewed the patient's lab results. Result diagrams: 05/04/21 16:39 05/04/21 16:39 Labs: Lab Results 05/04/21 05/04/21 05/04/21 Range/Units 16:39 16:39 16:39 WBC 7.9 (4.8-10.8) X10*3/uL RBC 5.53 (4.60-5.80) X10*6/uL Hgb 15.7 (14.0-18.0) g/dl Hct 46.7 (42.0-52.0) % MCV 84.4 (80.0-98.0) fL MCH 28.4 (27.0-33.0) pg MCHC 33.6 (31.0-36.0) g/dl RDW 13.4 (11.0-16.0) % Plt Count 293 (160-400) X10*3/uL MPV 9.8 (9.4-12.4) fL Immature Gran % (Auto) 0.4 (0.0-0.4) % Neut % (Auto) 67.2 (45-73) % Lymph % (Auto) 24.9 (20-40) % [place] % (Auto) 6.3 (2-11) % Eos % (Auto) 1.1 (0-4) % Baso % (Auto) 0.1 (0-2) % Lymph # (Auto) 2.0 (1.2-4.9) X10*3/uL [place] # (Auto) 0.5 (0.1-1.2) X10*3/uL Eos # (Auto) 0.1 (0.0-0.4) X10*3/uL Baso # (Auto) 0.0 (0.0-0.2) X10*3/uL Abs Immat Gran (auto) 0.03 (0.00-0.03) X10*3/uL Absolute Neuts (auto) 5.3 (2.0-8.3) x10*3/uL Absolute Nucleated RBC 0.000 (0.0-0.012) X10*3/uL Nucleated RBC % (auto) 0.0 (0.0-0.2) /100WBC D-Dimer High Sensitivty < 150 NG/ML Sodium 141 (135-145) mmol/L Potassium 3.8 (3.3-5.1) mmol/L Chloride 105 (96-108) mmol/L Carbon Dioxide 28 (22-29) mmol/L Anion Gap 12 (12-20) BUN 10 (9-16) mg/dL Creatinine 0.88 (0.5-1.4) mg/dL Estim Creat Clear Calc 114.0 Estimated GFR > 60 Random Glucose 100 (60-115) mg/dL Calcium 9.8 (8.4-10.2) mg/dL Troponin I High Sens (<3.5-35.0) ng/L B-Natriuretic Peptide (<100) pg/mL COVID-19 (CRISTEL) (Negative) COVID-19 Clin Com 05/04/21 05/04/21 Range/Units 16:39 16:40 WBC (4.8-10.8) X10*3/uL RBC (4.60-5.80) X10*6/uL Hgb (14.0-18.0) g/dl Hct (42.0-52.0) % MCV (80.0-98.0) fL MCH (27.0-33.0) pg MCHC (31.0-36.0) g/dl RDW (11.0-16.0) % Plt Count (160-400) X10*3/uL MPV (9.4-12.4) fL Immature Gran % (Auto) (0.0-0.4) % Neut % (Auto) (45-73) % Lymph % (Auto) (20-40) % [place] % (Auto) (2-11) % Eos % (Auto) (0-4) % Baso % (Auto) (0-2) % Lymph # (Auto) (1.2-4.9) X10*3/uL [place] # (Auto) (0.1-1.2) X10*3/uL Eos # (Auto) (0.0-0.4) X10*3/uL Baso # (Auto) (0.0-0.2) X10*3/uL Abs Immat Gran (auto) (0.00-0.03) X10*3/uL Absolute Neuts (auto) (2.0-8.3) x10*3/uL Absolute Nucleated RBC (0.0-0.012) X10*3/uL Nucleated RBC % (auto) (0.0-0.2) /100WBC D-Dimer High Sensitivty NG/ML Sodium (135-145) mmol/L Potassium (3.3-5.1) mmol/L Chloride (96-108) mmol/L Carbon Dioxide (22-29) mmol/L Anion Gap (12-20) BUN (9-16) mg/dL Creatinine (0.5-1.4) mg/dL Estim Creat Clear Calc Estimated GFR Random Glucose (60-115) mg/dL Calcium (8.4-10.2) mg/dL Troponin I High Sens < 3.5 (<3.5-35.0) ng/L B-Natriuretic Peptide 12 (<100) pg/mL COVID-19 (CRISTEL) Negative (Negative) COVID-19 Clin Com See Note Discharge Plan Discharge Clinical Impression: Right calf pain, SOB (shortness of breath) Patient Disposition: Home, Self-Care Instructions: Leg Pain (ED), Shortness of Breath (ED) Additional Instructions: Your blood work was reassuring today in the emergency department. Your ultrasound was negative for blood clot your x-ray was unremarkable you tested negative for COVID-19. If your symptoms persist or worsen, pain becomes unbearable, you develop weakness, constant worsening shortness of breath, fever, chills, cough please return to the emergency department Prescriptions: No Action acetaminophen [Tylenol Extra Strength] 500 mg tablet 500 mg PO Q6H PRN (Reason: pain or fever) Qty: 20 RF: 0 lidocaine [Lidoderm] 5 % adhesive patch,medicated 1 patch topical DAILY MDD remove after 12 hours PRN (Reason: pain) Qty: 30 RF: 0 naproxen 500 mg tablet 500 mg PO BID PRN (Reason: pain) 10 Days Qty: 20 RF: 0 cyclobenzaprine 5 mg tablet 5 mg PO Q8H PRN (Reason: pain (scale score 7-10)) 5 Days Qty: 14 RF: 0 Referrals: Physician,Unknown J [Primary Care Provider] - 2 days
[2021-05-04 16:45] LABS: MANUAL DIFF FLAG NO
[2021-05-04 16:53] LABS: Basophils Percent Auto 0.1 % (0-2); Eosinophils Absolute Auto 0.1 X10*3/uL (0.0-0.4); Eosinophils Percent Auto 1.1 % (0-4); Hematocrit 46.7 % (42.0-52.0); Hemoglobin 15.7 g/dl (14.0-18.0); Imm Gran Abs Auto 0.03 X10*3/uL (0.00-0.03); Imm Gran Pct Auto 0.4 % (0.0-0.4); Lymphocytes Percent Auto 24.9 % (20-40); Mean Corpuscular HGB Conc 33.6 g/dl (31.0-36.0); Mean Corpuscular Hemoglobin 28.4 pg (27.0-33.0); Mean Corpuscular Volume 84.4 fL (80.0-98.0); Mean Platelet Volume 9.8 fL (9.4-12.4); Monocytes Absolute Auto 0.5 X10*3/uL (0.1-1.2); Monocytes Percent Auto 6.3 % (2-11); Neutrophils Absolute Auto 5.3 x10*3/uL (2.0-8.3); Neutrophils Percent Auto 67.2 % (45-73); Platelet Count 293 X10*3/uL (160-400); Red Blood Count 5.53 X10*6/uL (4.60-5.80); Red Cell Distribution Width 13.4 % (11.0-16.0); White Blood Count 7.9 X10*3/uL (4.8-10.8)
[2021-05-04 16:55] LABS: D Dimer High Sensitivity < 150 NG/ML
[2021-05-04 16:59] LABS: Anion Gap 12 (12-20); Blood Urea Nitrogen 10 mg/dL (9-16); Calcium 9.8 mg/dL (8.4-10.2); Carbon Dioxide 28 mmol/L (22-29); Chloride 105 mmol/L (96-108); Estimated Glomerular Filt Rate > 60; Glucose Random 100 mg/dL (60-115); Potassium 3.8 mmol/L (3.3-5.1); Sodium 141 mmol/L (135-145)
[2021-05-04 17:07] LABS: B Type Natriuretic Peptide 12 pg/mL (<100); Troponin-I High Sensitivity < 3.5 ng/L (<3.5-35.0)
[2021-05-04 17:13] LABS: COVID-19 Test Negative (Negative); IDNOW Serial# 55D5AD1C
== END 2021-05-04 18:08 | disposition home or self-care (01) ==
PROVIDERS: Physician Assistant; Emergency Provider Emergency Medicine
DX: M79.662 Pain in left lower leg (principal); R06.02 Shortness of breath; Z20.822 Contact with and (suspected) exposure to COVID-19
CPT/HCPCS: 36415; 71045; 80048; 83880; 84484; 85025; 85379; 87635; 93005; 93971; 99283; 99284

== ENCOUNTER 2023-01-28 11:24 | Outpatient (AMB) | payer MEDICAID, SELFPAY ==
--- NOTE | 2023-01-28 13:33 | MHC.OFFWIV ---
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 has hx of surgery on that knee in the past. Patient Tobacco Use Status: Never used Tobacco Allergies Triaminic Cold Allergy (Unknown, Verified 01/28/23 13:34) hives Do you need a note to return to daycare/school/sports/work: No HPI HPI Comments History of Present Illness Details This is a 48-year-old male who presents to the office today for sick visit. Patient complaining of left knee pain and swelling x3 days. Patient states he was walking down stairs at home and he skipped a step and felt something weird in his knee but he did not really think anything of it. He was able to proceed with his activities of daily living that day with only minor pain. He then woke up the following day with worsening left knee pain and swelling. He is having difficulty with weight-bearing and ambulation. He states it feels similar to his prior ACL injury. He is status post ACL reconstruction in 2009. [facility] Surgical History History of repair of ACL Social History Alcohol intake: current Alcohol intake frequency: holidays/special occasions only Patient Tobacco Use Status: Never used Tobacco Review of Systems Const All systems reviewed & are unremarkable except as noted in HPI and below Reports no additional complaints Eyes Reports no additional complaints ENT Reports no additional complaints Card Reports no additional complaints Resp Reports no additional complaints GI Reports no additional complaints Reports no additional complaints Musc Reports no additional complaints Skin/Breast Reports system reviewed and no additional complaints, except as documented Neuro Reports no additional complaints Psych Reports no additional complaints Endo Reports no additional complaints Brandin/Lymph Reports no additional complaints Aller/Immun Reports no additional complaints Physical Exam Vital Signs: Last Vital Signs Pulse 70 01/28/23 13:43 BP 110/64 01/28/23 13:43 Pulse Ox 98 01/28/23 13:43 Oxygen Delivery Method Room Air 01/28/23 13:43 Const Other: Vital signs reviewed. Constitutional: Non-toxic appearing. No acute distress. Well-developed and well-nourished. HEENT: Normocephalic and atraumatic. Skin: Warm and dry. No rashes or lesions noted. Neck: Full and painless range of motion. No cervical lymphadenopathy. Cardio: Regular rate. No lower extremity edema. No JVD. Pulmonary: No respiratory distress. No accessory muscle usage. Gastrointestinal: Soft, nontender, and nondistended in all 4 quadrants. Genitourinary: No CVA tenderness. Musculoskeletal: Decreased range of motion of the right knee with flexion and mildly decreased range of motion with extension. Tenderness to palpation of the medial joint line of the right knee. Anterior knee pain with anterior drawer test. Neuro: Alert and oriented x4. Cranial nerves 2-12 grossly intact. No focal deficits appreciated. Psych: Normal mood and affect. Assessment & Plan Assessment & Plan (1) Left knee pain: Code(s): M25.562 - Pain in left knee Plan: This is a 48-year-old male with history of ACL reconstruction of the left knee in 2009 who presents to the office complaining of left knee pain / swelling after he missed a step approximately 3 days ago. Differential diagnoses includes knee sprain/ strain versus ligamentous injury versus meniscal injury; no evidence of septic arthritis/bursitis. Check x-ray of the left knee in the office today. Patient was given an orthopedic surgery referral for further evaluation and management. Patient will be given p.o. ibuprofen 800 mg every 8 hours to help with pain and inflammation. Recommend rest/activity modification, ice to the area, and elevation of the extremity. ontinue with acetaminophen/ibuprofen for pain management as long as patient has no medical contraindications. Patient was advised to follow-up here or proceed directly to the emergency room if he were to develop worsening or persistent symptoms. Patient verbalized understanding and is agreeable with the plan. Orders: Orders XR knee LT 2V Today M25.562 - Pain in left knee Referrals Orthopedics Referral S89.92XA - Unspecified injury of left lower leg, initial encounter Medications: New ibuprofen 800 mg PO Q8H 30 tabs 0RF Coding Level of Care Code New Pt Level 3 (89370) Diagnoses Left knee pain M25.562
[2023-01-28 13:43] VITALS: BP 110/64; PULSE 70; O2SAT 98
== END 2023-01-28 14:07 | disposition home or self-care (01) ==
PROVIDERS: Visit Provider Physician Assistant Medical
DX: M25.562 Pain in left knee (principal)
CPT/HCPCS: 99203

== ENCOUNTER 2023-01-28 14:02 | Outpatient (REF) | payer MEDICAID, SELFPAY ==
--- NOTE | ~2023-01-28 | XR_ITS ---
EXAMINATION: XR KNEE, LEFT CLINICAL INFORMATION: Pain COMPARISON: None available. TECHNIQUE: Four views of the left knee. FINDINGS: Previous ACL repair. No fracture or dislocation. No joint effusion. XR/XR knee LT 4V IMPRESSION: Previous ACL repair. No acute bony pathology.
== END 2023-01-28 14:03 | disposition home or self-care (01) ==
LOC: HO.HMGCX 14:02
PROVIDERS: Visit Provider Physician Assistant Medical
DX: M25.562 Pain in left knee (principal)
CPT/HCPCS: 73564

== ENCOUNTER 2023-02-09 13:03 | Outpatient (AMB) | payer MEDICAID, SELFPAY ==
--- NOTE | 2023-02-09 13:07 | A.OFFVIS_ITS ---
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 The patient states that he underwent left knee anterior cruciate ligament reconstructive surgery approx imately 13 years ago after suffering an injury while playing basketball. Patient states that he re-injured his knee approximately 1 year ago. He twisted his knee and had acute onset of pain. Since that time his symptoms have gotten worse in spite of continued non operative treatments. He states that his left knee will give out several times per day. He has had injections in the past which gave him no relief. He has also tried Tylenol and anti-inflammatory medicines which gave him minimal relief. He has done physical therapy for 12 weeks over the last 6 months which aggravated his pain. Allergies Triaminic Cold Allergy (Unknown, Verified 02/09/23 13:16) hives Medication List - Last Reviewed 02/09/23 by Nya Tom ibuprofen 800 mg PO Q8H [facility] Surgical History History of repair of ACL Social History Alcohol intake: current Alcohol intake frequency: holidays/special occasions only Patient Tobacco Use Status: Never used Tobacco Physical Exam Const Other: Well-nourished well-developed very friendly male awake alert and oriented x3 in no acute distress Extrem Other: Bilateral lower extremity examination shows good capillary refill, no skin lesions noted, normal sensation light touch Left knee examination shows that the surgical incisions are well healed, no erythema, minimal crepitus with range of motion, tenderness along his medial joint line, positive Alfred's test, positive Celestino's test Results Reviewed Results Reviewed: X-rays of the patient's left knee show minimal diffuse joint space narrowing, no acute bony abnormalities Assessment & Plan Assessment & Plan (1) ACL tear: Code(s): S83.519A - Sprain of anterior cruciate ligament of unspecified knee, initial encounter Plan Ms. Li presents with left knee pain and instability most likely due to recurrence tear of his anterior cruciate ligament as well as possible medial meniscus tearing. Thus, I will send the patient for an MRI of his left knee for further evaluation. I will see him back once the MRI is completed to discuss the findings and treatment options. I also had him fitted with a knee brace to help with his symptoms of instability. I do feel that the brace is a medical necessity to help prevent falls. The brace was a Genuflex brace. The patient will follow-up as instructed. I spent 22 minutes in reviewing the patient's records and imaging studies, seeing the patient and documenting in the medical record. Orders: Orders MR knee LT wo con Today S83.519A - Sprain of anterior cruciate ligament of unspecified knee, initial encounter Coding Level of Care Code New Pt Level 2 (17570) Diagnoses ACL tear S83.519A
== END 2023-02-09 13:31 | disposition home or self-care (01) ==
PROVIDERS: Visit Provider Orthopaedic Surgery
DX: S83.519A Sprain of anterior cruciate ligament of unspecified knee, initial encounter (principal)
CPT/HCPCS: 99202

== ENCOUNTER → 2023-02-09 13:03 | Outpatient (BNVA) | payer MEDICAID, SELFPAY | PROVIDERS: Visit Provider Orthopaedic Surgery | DX: S83.512A Sprain of anterior cruciate ligament of left knee, initial encounter (principal) | CPT/HCPCS: 99202 ==

== ENCOUNTER 2023-02-16 13:08 | Outpatient (AMB) | payer MEDICAID, SELFPAY ==
--- NOTE | 2023-02-16 13:11 | A.OFFVIS_ITS ---
Intake Intake Visit Reasons: ov-left knee MRI review Intake Note: Ivan is a 48 year old male who presents for follow-up of his left knee pain and giving way. The patient states that he underwent left knee anterior cruciate ligament reconstructive surgery approximately 13 years ago after suffering an injury while playing basketball. Patient states that he re-injured his knee approximately 1 year ago. He twisted his knee and had acute onset of pain. Since that time his symptoms have gotten worse in spite of continued non operative treatments. He states that his left knee will give out several times per day. He has had injections in the past which gave him no relief. He has also tried Tylenol and anti-inflammatory medicines which gave him minimal relief. He has done physical therapy for 12 weeks over the last 6 months which aggravated his pain. Allergies Triaminic Cold Allergy (Unknown, Verified 02/16/23 13:12) hives Medication List - Last Reconciled 02/16/23 by Paulette Martel RN ibuprofen 800 mg PO Q8H melatonin 10 mg PO BEDTIME PRN PFSH Surgical History History of repair of ACL Social History Alcohol intake: current Alcohol intake frequency: holidays/special occasions only Patient Tobacco Use Status: Never used Tobacco Physical Exam Const Other: Well-nourished well-developed very friendly male awake alert and oriented x3 in no acute distress Extrem Other: Bilateral lower extremity examination shows good capillary refill, no skin lesions noted, normal sensation light touch Left knee examination shows a minimal effusion, minimal crepitus with range of motion, tenderness along his medial and lateral joint lines, positive Alfred's test, no instability Results Reviewed Results Reviewed: MRI of the patient's left knee tearing of the lateral and medial menisci, mild diffuse degenerative changes, no injury to the anterior cruciate ligament graft Assessment & Plan Assessment & Plan (1) Tear of medial meniscus of left knee: Code(s): S83.242A - Other tear of medial meniscus, current injury, left knee, initial encounter Plan Mr. Li presents with left knee pain and mechanical symptoms due to tearing of his medial and lateral menisci. I had a lengthy discussion with the patient regarding the treatment options. At this point he has failed continued non operative treatments. The risks and benefits of left knee arthroscopic surgery were discussed at length with the patient. The patient wishes to proceed with surgery. He does understand that he may not get 100% relief of his symptoms depending on the severity of his degenerative changes. The patient will contact my office to pick a surgery date. He will follow-up as instructed. Feel free t o call me at any time should questions regarding his orthopedic management arise. I spent 22 minutes in reviewing the patient's records and imaging studies, seeing the patient and documenting in the medical record. Coding Level of Care Code Est Pt Level 2 (42433) Diagnoses Tear of medial meniscus of left knee S83.242A
== END 2023-02-16 13:38 | disposition home or self-care (01) ==
PROVIDERS: PCP Internal Medicine; Visit Provider Orthopaedic Surgery
DX: S83.242A Other tear of medial meniscus, current injury, left knee, initial encounter (principal)
CPT/HCPCS: 99212

== ENCOUNTER → 2023-02-16 13:08 | Outpatient (BNVA) | payer MEDICAID, SELFPAY | PROVIDERS: Visit Provider Orthopaedic Surgery | DX: S83.242A Other tear of medial meniscus, current injury, left knee, initial encounter (principal) | CPT/HCPCS: 99212 ==

== ENCOUNTER 2023-03-14 11:13 | Day surgery (SDC) | payer MEDICAID, SELFPAY ==
--- NOTE | 2023-03-08 14:02 | HO.ANESPROP2 ---
Documented by User: India Rodrigues NP 03/08/23 14:02 HPI - Anesthesia Eval Consult details Narrative: 48yo M for Right Knee Arthroscopy with partial medial meniscectomy, [facility] Active Problems Active Problems: All Active Problems (Updated 02/16/23 @ 13:43 by Yordan Hogan MD) Tear of medial meniscus of left knee (Acute) ACL tear (Acute) Surgical History Surgical History History of repair of ACL Social History Alcohol intake: current Alcohol intake frequency: holidays/special occasions only Patient Tobacco Use Status: Never used Tobacco Have you been hit, kicked, punched, or otherwise hurt by someone within the past year? If so, by whom?: No Are you DNR?: No Advance Directives: No Advance Directives Information Provided: Yes Recently lost weight without trying: No Eating poorly because of decreased appetite: No Nutrition Risks: No Nutritional Risk Poor oral hygiene: No Meds Allergies Allergy/AdvReac Type Severity Reaction Status Date / Time Triaminic Cold Allergy Unknown hives Verified 02/16/23 13:12 Active Medications: Current Medications Cefazolin Sodium/Dextrose (Ancef) 2 gm in 50 mls @ 100 mls/hr IV PREOP ONE Stop: 03/14/23 05:08 Home Medications Medication Instructions Recorded Confirmed Last Taken Type melatonin 10 mg capsule 10 mg PO BEDTIME PRN 02/16/23 02/16/23 Unknown History Assessment and Plan Assessment Anesthesia Assessment: Chart Reviewed Documented by User: Paulette Fink DO 03/14/23 13:03 [facility] Family History Family history of problems with anesthesia: No Surgical History Surgical History History of repair of ACL History of Problems with Anesthesia: No Social History Alcohol intake: current Alcohol intake frequency: holidays/special occasions only Patient Tobacco Use Status: Never used Tobacco Have you been hit, kicked, punched, or otherwise hurt by someone within the past year? If so, by whom?: No Are you DNR?: No Advance Directives: No Advance Directives Information Provided: Yes Recently lost weight without trying: No Eating poorly because of decreased appetite: No Nutrition Risks: No Nutritional Risk Poor oral hygiene: No Meds Allergies Allergy/AdvReac Type Severity Reaction Status Date / Time Triaminic Cold Allergy Unknown hives Verified 02/16/23 13:12 Home Medications Medication Instructions Recorded Confirmed Last Taken Type melatonin 10 mg capsule 10 mg PO BEDTIME PRN 02/16/23 02/16/23 Unknown History Exam Exam Date and Time: March 14, 2023 1235 Height,Weight and Vital Signs: Vital Signs Temperature 98.1 F 03/14/23 12:00 Pulse Rate 61 03/14/23 12:00 Respiratory Rate 18 03/14/23 12:00 Blood Pressure 110/86 03/14/23 12:00 Pulse Oximetry 98 03/14/23 12:00 Oxygen Delivery Method Room Air 03/14/23 12:00 Temperature 98.1 F 03/14/23 12:00 Pulse Rate 61 03/14/23 12:00 Respiratory Rate 18 03/14/23 12:00 Blood Pressure 110/86 03/14/23 12:00 Pulse Oximetry 98 03/14/23 12:00 Oxygen Delivery Method Room Air 03/14/23 12:00 Height 5 ft 11 in Weight 84.822 kg Airway Mallampati Class: II TM Dist: >3cm Neck ROM: Full Loose/Missing/Broken Teeth: No Heart: S1S2 Lungs: CTAB Assessment and Plan Assessment Anesthesia Assessment: Anesthesia Plan Discussed and Chart Reviewed Final Anesthetic Review Family History of Problems with Anesthesia: No History of Problems with Anesthesia: No NPO: Yes ASA Class: I Final Preanesthetic Review: No Changes in Pt Med Stat, Meds/Allgs Chart Reviewed, Consent Obtained/Reviewed and Anes Risks/Benef Reviewed Patient Risk: Low Procedure Risk: Low Anesthetic Plan Anesthetic Plan: GA and Agree w/ Assess. and Plan Disposition: Standard PACU
[2023-03-14] VITALS (11 sets, daily range): BP systolic 91–129; BP diastolic 56–86; PULSE 50–65; RESP 16–18; TEMP 36.2–36.7; O2SAT 93–98; BMI 26.1
[2023-03-14] MEDS: Lactated Ringers 1,000 ML 100 ML IVCONT (12:07)
--- NOTE | 2023-03-14 13:39 | PM.OP ---
Brief Operative Note Date of Service: 03/14/23 Pre-op diagnosis: Left knee lateral meniscus tear, left knee degenerative joint disease Post-op diagnosis: same Procedure: Left knee diagnostic arthroscopy with left knee arthroscopic partial lateral meniscectomy, left knee arthroscopic chondroplasty of the undersurface of the patella as well as the trochlear groove, left knee arthroscopic plica excision Implants: none Surgeon: Yordan Hogan MD Anesthesia: GLMA Was an Medical Service Representative used for this Procedure?: No Estimated blood loss (mL): 10 Pathology: none sent Condition: stable Disposition: PACU
--- NOTE | 2023-03-14 13:40 | W.PM.OPN ---
Operative Note Operative Note Date of Service: 03/14/23 Narrative: After the patient was identified as Ivan Li and his left knee was initialed by myself they were brought to the operating room where general anesthesia was induced by the anesthesiologist in routine fashion. The patient was given 2 g of IV Ancef preoperatively for infection prophylaxis. The patient's left lower extremity was prepped and draped in sterile fashion. A formal time-out was completed. Marcaine was injected into the planned incision sites as well as the patient's left knee joint. A #11 scalpel blade was used to make an anterolateral portal 1 cm proximal to the joint line and 1 cm lateral to the patellar tendon. Blunt trocar technique was used to enter the suprapatellar pouch with the knee in extension. Diagnostic arthroscopy showed multiple bands of thickened plica which would be excised at the end of the procedure. There were no loose bodies or abnormalities found in either the medial or lateral gutters. The articular surface of the patella showed diffuse grade 2 degenerative changes. The trochlear groove articular surface showed diffuse grades 2 and 3 degenerative changes. The patient's knee was flexed to 45 degrees and a valgus force was placed upon it. The medial compartment was entered. An anteromedial portal was made 1 cm proximal to the joint line and 1 cm medial to the patellar tendon. Probing of the medial meniscus showed no evidence of meniscus tearing. There were minimal degenerative changes of the medial femoral condyle and medial tibial plateau. The patient's knee was placed into a neutral position. There was no injury to the anterior cruciate ligament. The patient's knee was then placed in the figure of 4 position and the lateral compartment was entered. There was a radial tear of the anterior horn of the lateral meniscus. A partial lateral meniscectomy was performed using the arthroscopic shaver. Following the partial meniscectomy the remainder of the meniscus tissue was stable. There were minimal degenerative changes of the lateral femoral condyle and lateral tibial plateau. The patient's knee was once again brought into extension and the suprapatellar pouch was entered. The arthroscopic shaver and the ArthroCare Wand were used to excise the thickened bands of plica. The undersurface of the patella and the articular surface of the trochlear groove were then made smooth using the arthroscopic shaver. The knee joint was irrigated and then drained. All arthroscopic instruments were removed. The 2 portals were closed with 3-0 nylon interrupted suture. The knee joint was injected with Marcaine. Dry sterile dressing and Kevin bandages were placed over the patient's knee. The patient was awoken and extubated in the operating room. The patient was transferred to the recovery room in stable condition.
[2023-03-14] MEDS: cefTRIAXone sodium 1 GM in 0.9 % Sodium Chloride 50 ML IV (13:45)
[2023-03-14] MEDS: fentaNYL citrate/PF 100 MCG/2 ML VIAL 50 MCG IVPUSH ×2 (14:15→14:20)
[2023-03-14] MEDS: oxyCODONE HCl Immed Release 5 MG TABLET 10 MG PO (14:15)
== END 2023-03-14 15:50 | disposition home or self-care (01) ==
PROVIDERS: Visit Provider Orthopaedic Surgery
PROC: (CPT 29870; principal; 2023-03-14 13:00)
DX: S83.282A Other tear of lateral meniscus, current injury, left knee, initial encounter (principal); M67.52 Plica syndrome, left knee; M17.12 Unilateral primary osteoarthritis, left knee; X50.1XXA Overexertion from prolonged static or awkward postures, initial encounter; Y93.9 Activity, unspecified; Y92.9 Unspecified place or not applicable; Y99.9 Unspecified external cause status; Z79.1 Long term (current) use of non-steroidal anti-inflammatories (NSAID); Z79.899 Other long term (current) drug therapy; Z88.8 Allergy status to other drugs, medicaments and biological substances; Z98.890 Other specified postprocedural states
CPT/HCPCS: 29881; J0131; J0171; J0665; J0690; J0696; J1100; J1885; J2405; J2704; J3010

== ENCOUNTER → 2023-03-14 11:13 | Outpatient (BNV) | payer MEDICAID, SELFPAY | PROVIDERS: Visit Provider Orthopaedic Surgery | DX: S83.272A Complex tear of lateral meniscus, current injury, left knee, initial encounter (principal) | CPT/HCPCS: 29881 ==

== ENCOUNTER 2023-03-29 13:15 | Outpatient (AMB) | payer MEDICAID, SELFPAY ==
--- NOTE | 2023-03-29 13:19 | A.OFFVIS_ITS ---
Intake Intake Visit Reasons: PO-Lt Knee 03/14 Intake Note: Ivan is a 48 year old male who presents for a post op appointment s/p left knee 04/13/23 Patient reports having some soreness and stiffness when sleeping. He states that his ROM is improving slowly. Allergies Triaminic Cold Allergy (Unknown, Verified 02/16/23 13:12) hives HPI PO-Lt Knee 03/14 HPI Details Ivan is a 48 year old man who presents S/P left knee partial lateral meniscectomy, arthroscopic chondroplasty of the undersurface of the patella & trochlear groove, as well as plica excision, DOS: 03/14/[address] Hogan. He has known knee OA and a hx of an ACL repair. He says he is doing well overall, but he has some increased soreness & stiffness, particularly while sleeping. He tends to sleep on his side, which is painful for him, and he finds he needs to shift at night. He feels his ROM is improving slowly, and his pain & stiffness tend to resolve when he is walking around. He reports having some numbness over his incision. He localizes most of his pain to the medial aspect of his knee. [facility] Surgical History History of repair of ACL Social History Alcohol intake: current Alcohol intake frequency: holidays/special occasions only Patient Tobacco Use Status: Never used Tobacco Review of Systems Const All systems reviewed & are unremarkable except as noted in HPI and below Physical Exam Const General: no acute distress, alert and awake Orientation/consciousness: patient oriented x3 HEENT Head: Yes normocephalic and Yes atraumatic Eyes EOM: EOMs intact bilaterally Resp Effort & Inspection: normal respiratory effort and able to speak in complete sentences Cardio Jugular venous distension: no JVD Skin General skin exam: turgor normal Rashes: no rashes Neuro General: patient oriented x3 Extrem Other: Left Knee: Incision sites are clean, dry, and intact. Sutures intact. No surroun ding erythema or drainage. No signs of infection. Knee ROM 0-110 degrees. NVI. Psych Appearance: grossly normal Affect: normal affect Attitude: cooperative Assessment & Plan Assessment & Plan (1) Tear of medial meniscus of left knee: Code(s): S83.242A - Other tear of medial meniscus, current injury, left knee, initial encounter Plan Ivan is a 48 year old man who presents S/P left knee partial lateral meniscectomy, arthroscopic chondroplasty of the undersurface of the patella & trochlear groove, as well as plica excision, DOS: 03/14/[address] Hogan. He has known knee OA & a hx of an ACL repair. He says he is doing well overall, but he has some increased soreness & stiffness, particularly while sleeping. He tends to sleep on his side, which is painful for him, and he finds he needs to shift at night. He feels his ROM is improving slowly, and his pain & stiffness tend to resolve when he is walking around. He reports having some numbness over his incision. He localizes most of his pain to the medial aspect of his knee. Sutures were removed and steri-strips applied. The office will call the physical therapy office to get the patient scheduled for his first physical therapy session, and I explained the importance of quad strengthening exercises. He will follow up prn. Patient Instructions: Scribed for Lizzette Mosqueda PA-C by Shant Fajardo, certified medical assistant, on 03/29/23 at 1:45 PM EST. Coding Level of Care Code Global (46680) Diagnoses Tear of medial meniscus of left knee S83.242A
== END 2023-03-29 13:56 | disposition home or self-care (01) ==
PROVIDERS: PCP Internal Medicine; Visit Provider Physician Assistant
DX: S83.242A Other tear of medial meniscus, current injury, left knee, initial encounter (principal)
CPT/HCPCS: 99024

== ENCOUNTER → 2023-03-29 13:15 | Outpatient (BNVA) | payer MEDICAID, SELFPAY | PROVIDERS: PCP Internal Medicine; Visit Provider Physician Assistant | DX: S83.242D Other tear of medial meniscus, current injury, left knee, subsequent encounter (principal) | CPT/HCPCS: 99212 ==

== ENCOUNTER 2023-05-02 10:23 | Outpatient (RCR) | payer MEDICAID, SELFPAY | END 2023-07-01 15:19 | disposition home or self-care (01) | LOC: HO.PT 10:23 | PROVIDERS: PCP Internal Medicine; Visit Provider Physician Assistant | DX: S83.242D Other tear of medial meniscus, current injury, left knee, subsequent encounter (principal) ==